=== PATIENT | female | born 1955 | race Caucasian/White ===

== ENCOUNTER 2022-08-09 01:17 | Observation (INO) | payer OTHER ==
[2022-08-09 01:27] VITALS: BMI 29.6
[2022-08-09 02:27] LABS: BASO % 0.6 % (0-2.0); HEMATOCRIT 41.8 % (32.4-45.2); HEMOGLOBIN 14.2 GM/dL (10.7-15.3); LYMPH % 20.8 % (8-40); MCH 29.6 pg (25.7-33.7); MCHC 33.9 g/dl (32.0-36.0); MEAN CELL VOLUME 87.2 fl (80-96); MEAN PLT VOLUME 8.5 fl (7.5-11.1); MONO % 4.9 % (3.8-10.2); NEUT % 70.7 % (42.8-82.8); PLATELET COUNT 198 10^3/uL (134-434); RBC 4.79 M/mm3 (3.60-5.2); RDW 12.6 % (11.6-15.6); WHITE BLOOD COUNT 9.5 K/mm3 (4.0-10.0)
[2022-08-09 02:52] LABS: CALCIUM 9.2 mg/dL (8.5-10.1)
[2022-08-09 02:53] LABS: ALBUMIN 3.5 g/dl (3.4-5.0); BLOOD UREA NITROGEN 20.7 mg/dL (7-18); MAGNESIUM 1.9 mg/dL (1.8-2.4)
[2022-08-09 02:56] LABS: CREATININE 0.7 mg/dL (0.55-1.3)
[2022-08-09 02:57] LABS: BILIRUBIN,TOTAL 0.5 mg/dL (0.2-1); TOT PROT 7.7 g/dl (6.4-8.2)
[2022-08-09 03:01] LABS: N-TERMINAL BNP 242.1 pg/ml (5-125)
[2022-08-09] MEDS ORDERED: ASPIRIN 81 MG CHEWABLE TABLETS PO ONE (03:32)
[2022-08-09] MEDS ORDERED: ASPIRIN 325 MG TABLET ONE (04:53)
[2022-08-09 07:58] LABS: BASO % 0.4 % (0-2.0); BLOOD UREA NITROGEN 19.5 mg/dL (7-18); EOS % 2.3 % (0-4.5); HEMATOCRIT 40.1 % (32.4-45.2); HEMOGLOBIN 13.6 GM/dL (10.7-15.3); MCH 29.5 pg (25.7-33.7); MCHC 33.8 g/dl (32.0-36.0); MEAN CELL VOLUME 87.3 fl (80-96); MEAN PLT VOLUME 8.3 fl (7.5-11.1); MONO % 5.3 % (3.8-10.2); PLATELET COUNT 121 10^3/uL (134-434); RBC 4.59 M/mm3 (3.60-5.2); RDW 12.8 % (11.6-15.6); WHITE BLOOD COUNT 8.7 K/mm3 (4.0-10.0)
[2022-08-09 07:59] LABS: ALBUMIN 3.4 g/dl (3.4-5.0)
[2022-08-09 08:00] LABS: CALCIUM 9.1 mg/dL (8.5-10.1)
[2022-08-09 08:01] LABS: CREATININE 0.6 mg/dL (0.55-1.3); PHOSPHOROUS 3.9 mg/dL (2.5-4.9)
[2022-08-09 08:03] LABS: BILIRUBIN,TOTAL 0.6 mg/dL (0.2-1)
[2022-08-09 08:06] LABS: N-TERMINAL BNP 274.9 pg/ml (5-125)
[2022-08-09] MEDS ORDERED: ENOXAPARIN NA (PORCINE) 40 MG/0.4 ML DISP.SYRIN SQ SCH (10:00)
[2022-08-09] MEDS ORDERED: ENOXAPARIN NA (PORCINE) 40 MG/0.4 ML DISP.SYRIN SQ ONE (10:14)
[2022-08-09] MEDS: INSULIN SLIDING SCALE (NOVOLOG) 1 VIAL SQ SCH ×2 (10:22→11:23)
[2022-08-09 11:02] LABS: EPI CELLS 16 /uL (0-25.1); HYALINE CASTS 0 /uL (0-3.1); URINE APPEARANCE CLEAR; URINE BACTERIA 37 /uL (0-1359); URINE BILIRUBIN NEGATIVE (NEGATIVE); URINE COLOR YELLOW; URINE GLUCOSE (UA) NEGATIVE (NEGATIVE); URINE KETONE NEGATIVE (NEGATIVE); URINE LEUK ESTERASE 1+ (NEGATIVE); URINE NITRITE NEGATIVE (NEGATIVE); URINE PROTEIN NEGATIVE (NEGATIVE); URINE RBC 13 /uL (0-23.9); URINE UROBILINOGEN 0.2 mg/dL (0.2-1.0); URINE WBC 43 /uL (0-25.8)
[2022-08-09 13:47] VITALS: BP 141/80; PULSE 57; RESP 18; TEMP 98
[2022-08-10] MEDS ORDERED: LISINOPRIL 10 MG TABLET PO SCH ×2 (10:00)
[2022-08-10] MEDS ORDERED: LISINOPRIL 5 MG TABLET PO SCH (10:00)
== END 2022-08-09 17:05 | disposition home or self-care (01) ==
LOC: JER 01:17 → JERBED 03:18
PROVIDERS: ADMIT Family Medicine; ATTEND Internal Medicine
PROC: 3E013GC Introduction of Other Therapeutic Substance into Subcutaneous Tissue, Percutaneous Approach (ICD-10-PCS; principal; 2022-08-09)
DX: R07.9 Chest pain, unspecified (principal); R00.2 Palpitations; I11.0 Hypertensive heart disease with heart failure; I50.9 Heart failure, unspecified; E78.5 Hyperlipidemia, unspecified; E11.9 Type 2 diabetes mellitus without complications; Z79.4 Long term (current) use of insulin; R06.09 Other forms of dyspnea
CPT/HCPCS: 36415; 71046-TC-FY; 80053; 80061; 81003; 82550; 82962; 83036; 83735; 83880; 84100; 84443; 84484; 85025; 93005; 93010; 93306-TC; 93880-TC; 96372; 99285-25; C9803-CS; G0378; U0003; U0005